=== PATIENT | male | born 1980 | race African-American/Black ===

== ENCOUNTER 2017-03-29 02:13 | Emergency (ER) | payer OTHER ==
[~2017-03-29] VITALS: Ht 195.6 cm; Wt 136.4 kg
[2017-03-29 02:58] VITALS: BP 151/114
[2017-03-29] MEDS ORDERED: SULFAMETHOX/TRIMETH DS 800-160 MG/TABLET PO ONE (03:15)
[2017-03-29] MEDS ORDERED: DiphenhydrAMINE HCL 25 MG CAPSULE PO ONE (03:30)
== END 2017-03-29 03:38 | disposition home or self-care (01) ==
LOC: EMS 02:15
DX: L02.413 Cutaneous abscess of right upper limb (principal); L03.113 Cellulitis of right upper limb; S50.861A Insect bite (nonvenomous) of right forearm, initial encounter; S50.862A Insect bite (nonvenomous) of left forearm, initial encounter; I10 Essential (primary) hypertension; Z88.0 Allergy status to penicillin; W57.XXXA Bitten or stung by nonvenomous insect and other nonvenomous arthropods, initial encounter; Y93.89 Activity, other specified; Y92.89 Other specified places as the place of occurrence of the external cause; Y99.8 Other external cause status
CPT/HCPCS: 99283